=== PATIENT | female | born 1950 | race Caucasian/White ===

== ENCOUNTER 2020-12-08 16:19 | Emergency (ER) | payer MEDICARE, OTHER ==
[~2020-12-08] VITALS: Ht 160 cm; Wt 68.0 kg
[2020-12-08] MEDS ORDERED: HYDROCODONE/APAP 5MG-325MG TAB PO ONE (17:15)
[2020-12-08] MEDS ORDERED: ONDANSETRON HCL INJ 2MG/ML 2ML 2 MG/ML VIAL IV STA (17:55)
[2020-12-08] MEDS ORDERED: FENTANYL CITRATE/PF 100MCG/2 ML INJ IV ONE (18:00)
[2020-12-08] MEDS ORDERED: MIDAZOLAM HCL 2 MG/2 ML VIAL IV STA (18:29)
[2020-12-08] MEDS ORDERED: HYDROCODON-ACE1 EAC9 PO (19:50)
[2020-12-08 21:56] VITALS: BP_DIAS 5
== END 2020-12-08 22:03 | disposition home or self-care (01) ==
LOC: ER 17:00
DX: S52.501A Unspecified fracture of the lower end of right radius, initial encounter for closed fracture (principal); M25.561 Pain in right knee; W01.0XXA Fall on same level from slipping, tripping and stumbling without subsequent striking against object, initial encounter; Y93.01 Activity, walking, marching and hiking; G40.909 Epilepsy, unspecified, not intractable, without status epilepticus
CPT/HCPCS: 25605; 73090; 73110; 73562; 73610; 99284; J2250; J2405; J3010